=== PATIENT | male | born 1980 | race Two or more races ===

== ENCOUNTER 2018-10-07 12:42 | Emergency (ER) | payer SELFPAY ==
[~2018-10-07] VITALS: Ht 185.4 cm; Wt 116.6 kg
--- NOTE | 2018-10-07 12:57 | NUR ---
38 Y/O MALE PLACED IN BED 12 C/O CHEST PAIN FOR 3 DAYS. PT CLAIMS PAIN INCREASES WITH INSPIRATION AND MOVEMENT.
[2018-10-07 13:14] LABS: BASOPHILS # (AUTO) 0.1 /CMM (0.0-0.2); BASOPHILS % (AUTO) 0.7 % (0.0-2.0); EOSINOPHILS % (AUTO) 1.5 % (0.0-6.0); HEMATOCRIT 46 % (39-51); HEMOGLOBIN 15.3 g/dL (13.5-17.5); LYMPHOCYTES # (AUTO) 2.2 /CMM (0.8-4.8); LYMPHOCYTES % (AUTO) 18.8 % (20.0-44.0); MEAN CORPUSCULAR HGB CONC 33 g/dl (31.0-36.0); MEAN CORPUSCULAR VOLUME 84 fL (80-96); MONOCYTES # (AUTO) 1.2 /CMM (0.1-1.30); MONOCYTES % (AUTO) 9.9 % (2.0-12.0); NEUTROPHILS # (AUTO) 8.1 /CMM (1.8-8.9); NEUTROPHILS % (AUTO) 69.1 % (43.0-81.0); PLATELET COUNT (AUTO) 287 /CMM (150-450); RED BLOOD CELL COUNT(AUTO) 5.44 MIL/uL (4.5-6.0); WHITE BLOOD COUNT (AUTO) 11.7 K/uL (4.3-11.0)
[2018-10-07] MEDS ORDERED: KETOROLAC TROMETHAMINE 15 MG/ML VIAL ONE (13:23)
[2018-10-07 13:26] LABS: CALCIUM, SERUM 8.6 mg/dL (8.5-10.1); CARBON DIOXIDE 30 mmol/L (21-32); CHLORIDE 102 mmol/L (98-107); GLUCOSE 106 mg/dL (74-106); POTASSIUM 3.4 mmol/L (3.5-5.1); SODIUM SERUM 140 mmol/L (136-145); UREA NITROGEN, BLOOD 9 mg/dL (7-18)
[2018-10-07] MEDS ORDERED: IV NS 0.9% 500 ML BAG IV ONE (13:30)
[2018-10-07] MEDS ORDERED: KETOROLAC TROMETHAMINE INJ 30 MG/ML VIAL IV ONE (13:30)
[2018-10-07 13:31] LABS: ALANINE AMINOTRANSFERASE 76 U/L (12-78); ALBUMIN 3.8 g/dL (3.4-5.0); ALKALINE PHOSPHATASE 93 U/L (46-116); ASPARTATE AMINOTRANSFERASE 33 U/L (15-37); BILIRUBIN,DIRECT 0.1 mg/dL (0.0-0.2); BILIRUBIN,TOTAL 0.9 mg/dL (0.2-1.0); LIPASE 128 U/L (73-393); TOTAL PROTEIN, SERUM 7.5 g/dL (6.4-8.2)
[2018-10-07 14:08] VITALS: BP 119/81
--- NOTE | 2018-10-07 14:09 | NUR ---
20G H/L PLACED IN LEFT A/C. BLOOD DRAWN AND SENT TO LAB. CXR AND EKG DONE.
--- NOTE | 2018-10-07 14:10 | NUR ---
RESULTS FROM TESTS INDICATE DX - CHEST PAIN NO SPECIFIC. ACI WITH RX GIVEN. PT DISCHARGED HOME TO FOLLOE UP WITH PMD.
--- NOTE | 2018-10-07 14:11 | NUR ---
ADDENDUM. ORIGINAL 15MG TORADOL ACCIDENTALLY WASTED. HAD TO PULL OUT A SECOND DOSE OF 15MG TORADOL TO GIVE TO PT.
== END 2018-10-07 14:14 | disposition home or self-care (01) ==
LOC: ER 12:49
DX: F41.9 Anxiety disorder, unspecified (principal); R07.89 Other chest pain
CPT/HCPCS: 36415; 71045-TC; 80048-TC; 80076-TC; 83690-TC; 84484-TC; 85025-TC; A4606; J1885; J7040; Z7610